=== PATIENT | male | born 1980 | race Caucasian/White ===

== ENCOUNTER → 2023-10-16 | Emergency (ER) | payer OTHER ==
[~2023-10-16] MED LIST: ALBUTEROL 2.5 MG/3 ML NEB SOL ONE; IPRATROPIUM BROM 0.5MG/2.5ML ONE; METHYLPREDNISOLONE 125 MG INJ ONE
--- OUTSIDE RECORDS SUMMARY | 2023-10-16 19:56 | XMS REPORT | Continuity of Care Document ---
Author Name Unknown Address [address] 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 PCP, PATIENT DOES NOT HAVE A Primary Care Physic tomy Unavailable LEYDI BARRERA Attending Clinician Unavailable Leydi Barrera DO Attending Clinician [phone] GELACIO NICOLE Attending Clinician Unavailable GELACIO NICOLE Attending Clinician Unavailable AVELINO ENCINAS Attending Clinician Unavailable Doctor Unassigned, [place] Attending Clinician U MADONNA Lozada Attending Clinician UnavailMadonna Roth DO Attending Clinician [phone] Júnior Crowe MD Attending Clinician [phone] Jossue Banks MD Attending Clinician [phone] Deonte Avalos MD Attending Clinician [phone] LEYDI BARRERA Admitting Clinician Unavailable GELACIO NICOLE Admitting Clinician Unavailable Payers Payer Name Policy Type Policy Number Effective Date Expirati on Date Source [facility] [id number] 2021 00:00:00 Problems Condition Name Condition Details Condition Category Status Onset Date Resolution Date Last Treatment Date Treating Clinician Comments Source Asthma attack Asthma attack Disease Active 08-18 00:00: 00 [facility] Asthma Asthma Disease Active 04-20 00:00: 00 [facility] Asthma exacerbati on Asthma exacerbati on Disease Active 04-19 00:00: 00 [facility] Allergies, Adverse Reactions, Alerts Allergy Name Allergy Type Status Severity Reaction(s) Onset Date Inactive Date Treating Clinician Comments Source NO KNOWN ALLERGIE S Drug Class Active [facility] Social History Social Habit Start Date Stop Date Quantity Comments Source History SDOH Alcohol Frequency [facility] History SDOH Alcohol Std Drinks [facility] History SDOH Alcohol Binge [facility] History of tobacco use Smokes tobacco daily [facility] intake 2023-05-02 00:00:00 2023-05-02 00:00:00 0 /d [facility] History of Social function 2023-05-02 00:00:00 2023-05-02 00:00:00 [facility] Exposure to SARS-CoV-2 (event) 2022-04-06 00:00:00 2022-04-16 14:30:00 Not sure [facility] Tobacco use and exposure 2017-08-18 00:00:00 2017-08-18 00:00:00 Smokeless tobacco non-user [facility] Alcohol Comment 2015-04-19 00:00:00 2015-04-19 00:00:00 social drinker [facility] Sex Assigned At 1980 00:00:00 1980 00:00:00 [facility] Smoking Status Start Date Stop Date Source Smokes tobacco daily 2017-08-18 00:00:00 [facility] Medications Ordered Medication Name Filled Medication Name Start Date Stop Date Current Medication? Ordering Clinician Indication Dosage Frequency Signature (SIG) Comments Components Source methylpredn isolone sod succ (SOLU-MEDRO L) injection 125 mg 05-02 09:30: 00 05-02 08:34 :00 No 125mg 125 mg, Intramuscu lar, ONCE, 1 dose, On Tue05/02/23 at 0430, 2 mL [facility] ipratropium -albuteroL (DUONEB) 0.5 mg-3 mg(2.5 mg base)/3 mL nebulizer solution 3 mL 05-02 08:45: 00 Yes 3mL 3 mL, Inhalation , QID, First dose on Tue05/02/23 at 0345, Until Discontinu ed, Routine [facility] naproxen sodium (ANAPROX DS) 550 mg tablet 05-02 00:00: 00 Yes [id number] 550mg Take 1 tablet by mouth in the morning and 1 tablet in the evening. Take with meals. [facility] methylPREDN ISolone (MEDROL, CHRIST,) 4 mg tablets 05-02 00:00: 00 Yes [id number] Take by mouth SEE-INSTRU CTIONS. follow package directions [facility] methocarbam oL 500 mg tablet 05-02 00:00: 00 05-08 04:59 :00 No [id number] 500mg Take 1 tablet by mouth in the morning and 1 tablet at noon and 1 tablet in the evening. Do all this for 5 days. [facility] acetaminoph en (TYLENOL) tablet 1,000 mg 04-16 21:30: 00 04-16 21:18 :00 No 1000mg 1,000 mg, Oral, ONCE, 1 dose, On Tue04/16/22 at 1630, RIVAS [facility] predniSONE (DELTASONE) tablet 40 mg 04-16 19:45: 00 04-16 19:43 :00 No 40mg 40 mg, Oral, ONCE, 1 dose, On Tue04/16/22 at 1445, RIVAS [facility] albuterol (VENTOLIN) inhaler 4 Puff 04-16 19:35: 00 04-16 19:45 :00 No 4{puff} 4 Puff, Inhalation , ONCE, 1 dose, On Tue04/16/22 at 1445, RIVAS [facility] ibuprofen 600 mg tablet 04-16 00:00: 00 Yes [id number] 600mg Take 1 tablet by mouth every 6 (six) hours as needed for Pain (scale 4-6) for up to 30 doses. [facility] albuterol 2.5 mg /3 mL (0.083 %) nebulizer solution 04-16 00:00: 00 Yes [id number] 2.5mg Inhale 3 mL every 4 (four) hours. May also nebulize one extra every 6 hours. [facility] ibuprofen 600 mg tablet 04-16 00:00: 00 Yes [id number] 600mg Take 1 tablet by mouth every 6 (six) hours as needed for Pain (scale 4-6) for up to 30 doses. [facility] albuterol 2.5 mg /3 mL (0.083 %) nebulizer solution 04-16 00:00: 00 Yes [id number] 2.5mg Inhale 3 mL every 4 (four) hours. May also nebulize one extra every 6 hours. [facility] nirmatrelvi r-ritonavir (PAXLOVID, EUA,) 150-100 mg tablet 04-16 00:00: 00 04-22 04:59 :00 No [id number] 2{tbl} Take 2 tablets by mouth in the morning and 2 tablets in the evening. Do all this for 5 days. [facility] predniSONE 10 mg tablet 09-06 00:00: 00 09-11 05:59 :00 No [id number] 60mg Take 6 tablets by mouth daily for 4 days. [facility] predniSONE (DELTASONE) tablet 60 mg 09-05 22:45: 00 09-05 21:46 :00 No 60mg 60 mg, Oral, ONCE, 1 dose, On 09/05/21 at 1645, RIVAS [facility] ipratropium (ATROVENT) 0.02 % nebulizer solution 0.5 mg 09-05 22:45: 00 09-05 21:56 :00 No .5mg 0.5 mg, Inhalation , ONCE, 1 dose, On 09/05/21 at 1645, RIVAS [facility] albuterol (PROVENTIL) 2.5 mg /3 mL (0.083 %) nebulizer solution 5 mg 09-05 22:45: 00 09-05 21:56 :00 No 5mg 5 mg, Inhalation , ONCE, 1 dose, On 09/05/21 at 1645, RIVAS [facility] albuterol 2.5 mg /3 mL (0.083 %) nebulizer solution 09-05 00:00: 00 Yes [id number] 2.5mg Inhale 3 mL every 4 (four) hours as needed for Wheezing or Shortness of Breath. May also nebulize one extra every 6 hours. [facility] albuterol 2.5 mg /3 mL (0.083 %) nebulizer solution 09-05 00:00: 00 Yes [id number] 2.5mg Inhale 3 mL every 4 (four) hours as needed for Wheezing or Shortness of Breath. May also nebulize one extra every 6 hours. [facility] albuterol 2.5 mg /3 mL (0.083 %) nebulizer solution 09-05 00:00: 00 04-16 00:00 :00 No [id number] 2.5mg Inhale 3 mL every 4 (four) hours as needed for Wheezing or Shortness of Breath. May also nebulize one extra every 6 hours. [facility] ipratropium -albuteroL (DUONEB) 0.5 mg-3 mg(2.5 mg base)/3 mL nebulizer solution 3 mL 2020-08 13:00: 00 Yes 3mL 3 mL, Inhalation , QID, First dose on Marija 05/28/21 at 0800, Until Discontinu ed, Routine [facility] methylpredn isolone sod succ (SOLU-MEDRO L) injection 125 mg 2020-08 13:00: 00 05-28 13:15 :00 No 125mg 125 mg, IV Piggyback, ONCE, 1 dose, On Marija 05/28/21 at 0800, STAT [facility] ipratropium -albuteroL (DUONEB) 0.5 mg-3 mg(2.5 mg base)/3 mL nebulizer solution 6 mL 2020-08 12:45: 00 05-28 11:37 :00 No 6mL 6 mL, Inhalation , ONCE, 1 dose, On Marija 05/28/21 at 0745, Routine [facility] predniSONE 50 mg tablet 2020-08 00:00: 00 Yes [id number] 50mg Take 1 tablet by mouth daily. [facility] albuterol 90 mcg/actuati on inhaler 2020-08 00:00: 00 Yes [id number] 2{puff} Inhale 2 Puffs every 4 (four) hours as needed for Wheezing or Shortness of Breath. [facility] albuterol 2.5 mg /3 mL (0.083 %) nebulizer solution 2020-08 00:00: 00 Yes [id number] 2.5mg Inhale 3 mL every 4 (four) hours. May also nebulize one extra every 6 hours. [facility] benzonatate 200 mg capsule 2020-08 00:00: 00 Yes [id number] 200mg Take 1 capsule by mouth 3 (three) times daily as needed for Cough. [facility] benzonatate 200 mg capsule 2020-08 00:00: 00 Yes [id number] 200mg Take 1 capsule by mouth 3 (three) times daily as needed for Cough. [facility] benzonatate 200 mg capsule 2020-08 00:00: 00 Yes [id number] 200mg Take 1 capsule by mouth 3 (three) times daily as needed for Cough. [facility] benzonatate 200 mg capsule 2020-08 00:00: 00 Yes [id number] 200mg Take 1 capsule by mouth 3 (three) times daily as needed for Cough. [facility] benzonatate 200 mg capsule 2020-08 00:00: 00 Yes [id number] 200mg Take 1 capsule by mouth 3 (three) times daily as needed for Cough. [facility] predniSONE 50 mg tablet 2020-08 00:00: 09-05 00:00 :00 No [id number] 50mg Take 1 tablet by mouth daily. [facility] albuterol 90 mcg/actuati on inhaler 2020-08 00:00: 00 09-05 00:00 :00 No [id number] 2{puff} Inhale 2 Puffs every 4 (four) hours as needed for Wheezing or Shortness of Breath. [facility] albuterol 2.5 mg /3 mL (0.083 %) nebulizer solution 2020-08 00:00: 00 09-05 00:00 :00 No [id number] 2.5mg Inhale 3 mL every 4 (four) hours. May also nebulize one extra every 6 hours. [facility] predniSONE 10 mg tablet 12-29 00:00: 00 Yes [id number] 50mg Take 5 tablets by mouth daily. [facility] predniSONE 10 mg tablet 12-29 00:00: 00 Yes [id number] 50mg Take 5 tablets by mouth daily. [facility] predniSONE 10 mg tablet 12-29 00:00: 00 09-05 00:00 :00 No [id number] 50mg Take 5 tablets by mouth daily. [facility] predniSONE 10 mg tablet 12-29 00:00: 00 12-28 00:00 :00 No [id number] 50mg Take 5 tablets by mouth daily for 4 days. [facility] albuterol (PROVENTIL) 2.5 mg /3 mL (0.083 %) nebulizer solution 5 mg 12-28 13:15: 00 12-28 13:05 :00 No 5mg 5 mg, Inhalation , ONCE, 1 dose, 12/28/20 at 0815, STAT [facility] methylpredn isolone sod succ (SOLU-MEDRO L) injection 125 mg 12-28 13:15: 00 12-28 12:08 :00 No 125mg 125 mg, IV Piggyback, ONCE, 1 dose, 12/28/20 at 0815, STAT [facility] ipratropium (ATROVENT) 0.02 % nebulizer solution 0.5 mg 12-28 12:15: 00 12-28 12:09 :00 No .5mg 0.5 mg, Inhalation , ONCE, 1 dose, Flom 12/28/20 at 0715, RIVAS [facility] albuterol (PROVENTIL) 2.5 mg /3 mL (0.083 %) nebulizer solution 7.5 mg 12-28 12:15: 00 12-28 12:08 :00 No 7.5mg 7.5 mg, Inhalation , ONCE, 1 dose, Flom 12/28/20 at 0715, STAT [facility] albuterol 2.5 mg /3 mL (0.083 %) nebulizer solution 12-28 00:00: 00 Yes [id number] 2.5mg Inhale 3 mL every 4 (four) hours as needed for Wheezing or Shortness of Breath. [facility] albuterol 90 mcg/actuati on inhaler 12-28 00:00: 00 Yes [id number] 2{puff} Inhale 2 Puffs every 4 (four) hours as needed for Wheezing. [facility] ipratropium -albuteroL 0.5 mg-3 mg(2.5 mg base)/3 mL nebulizer solution 12-28 00:00: 00 Yes [id number] 3mL Inhale 3 mL every 4 (four) hours as needed for Wheezing. [facility] albuterol 2.5 mg /3 mL (0.083 %) nebulizer solution 12-28 00:00: 00 Yes [id number] 2.5mg Inhale 3 mL every 4 (four) hours as needed for Wheezing or Shortness of Breath. [facility] albuterol 90 mcg/actuati on inhaler 12-28 00:00: 00 Yes [id number] 2{puff} Inhale 2 Puffs every 4 (four) hours as needed for Wheezing. [facility] ipratropium -albuteroL 0.5 mg-3 mg(2.5 mg base)/3 mL nebulizer solution 12-28 00:00: 00 Yes [id number] 3mL Inhale 3 mL every 4 (four) hours as needed for Wheezing. [facility] ipratropium -albuteroL 0.5 mg-3 mg(2.5 mg base)/3 mL nebulizer solution 12-28 00:00: 00 Yes [id number] 3mL Inhale 3 mL every 4 (four) hours as needed for Wheezing. [facility] ipratropium -albuteroL 0.5 mg-3 mg(2.5 mg base)/3 mL nebulizer solution 12-28 00:00: 00 Yes [id number] 3mL Inhale 3 mL every 4 (four) hours as needed for Wheezing. [facility] ipratropium -albuteroL 0.5 mg-3 mg(2.5 mg base)/3 mL nebulizer solution 12-28 00:00: 00 Yes [id number] 3mL Inhale 3 mL every 4 (four) hours as needed for Wheezing. [facility] ipratropium -albuteroL 0.5 mg-3 mg(2.5 mg base)/3 mL nebulizer solution 12-28 00:00: 00 Yes [id number] 3mL Inhale 3 mL every 4 (four) hours as needed for Wheezing. [facility] albuterol 2.5 mg /3 mL (0.083 %) nebulizer solution 12-28 00:00: 00 09-05 00:00 :00 No [id number] 2.5mg Inhale 3 mL every 4 (four) hours as needed for Wheezing or Shortness of Breath. [facility] albuterol 90 mcg/actuati on inhaler 12-28 00:00: 00 09-05 00:00 :00 No [id number] 2{puff} Inhale 2 Puffs every 4 (four) hours as needed for Wheezing. [facility] albuterol 90 mcg/actuati on inhaler 12-28 00:00: 00 12-28 00:00 :00 No [id number] 2{puff} Inhale 2 Puffs every 4 (four) hours as needed for Wheezing. [facility] albuterol 2.5 mg /3 mL (0.083 %) nebulizer solution 12-28 00:00: 00 12-28 00:00 :00 No [id number] 2.5mg Inhale 3 mL every 4 (four) hours as needed for Wheezing or Shortness of Breath. [facility] ipratropium -albuteroL 0.5 mg-3 mg(2.5 mg base)/3 mL nebulizer solution 12-28 00:00: 00 12-28 00:00 :00 No [id number] 3mL Inhale 3 mL every 4 (four) hours as needed for Wheezing. [facility] HYDROcodone -acetaminop hen (NORCO 5) 5-325 mg tablet 1 tablet 11-09 22:15: 00 11-09 21:19 :00 No 1{tbl} 1 tablet, Oral, ONCE, 1 dose, 11/09/20 at 1715, RIVAS [facility] morpHINE injection 4 mg 11-09 20:15: 00 11-09 19:22 :00 No 4mg 4 mg, Slow IV Push, ONCE, 1 dose, 11/09/20 at 1515, STAT [facility] NaCl 0.9% (NS) bolus infusion 1,000 mL 11-09 19:30: 00 11-09 21:19 :00 No 1000mL at 999 mL/hr, 1,000 mL, IV Infusion, ONCE, 1 dose, 11/09/20 at 1430, RVIAS [facility] ketorolac (TORADOL) injection 30 mg 11-09 19:15: 00 11-09 19:21 :00 No 30mg 30 mg, Slow IV Push, ONCE, 1 dose, 11/09/20 at 1415, RIVAS
Fa culty member approving Restricted medication : MADONNA BROWNE [facility] ondansetron (ZOFRAN (PF)) injection 4 mg 11-09 18:45: 00 11-09 17:44 :00 No 4mg 4 mg, Slow IV Push, ONCE, 1 dose, 11/09/20 at 1345, RIVAS [facility] morpHINE injection 4 mg 11-09 18:45: 00 11-09 17:47 :00 No 4mg 4 mg, Slow IV Push, ONCE, 1 dose, 11/09/20 at 1345, STAT [facility] ketorolac (TORADOL) injection 30 mg 11-09 17:45: 00 11-09 17:45 :00 No 30mg 30 mg, Slow IV Push, ONCE, 1 dose, 11/09/20 at 1245, RIVAS
Fa culty member approving Restricted medication : MADONNA BROWNE [facility] NaCl 0.9% (NS) bolus infusion 1,000 mL 11-09 17:45: 00 11-09 19:21 :00 No 1000mL at 999 mL/hr, 1,000 mL, IV Infusion, ONCE, 1 dose, 11/09/20 at 1245, RIVAS [facility] naproxen 500 mg tablet 11-09 00:00: 00 Yes [id number] 500mg Take 1 tablet by mouth 2 (two) times daily with meals. [facility] naproxen 500 mg tablet 11-09 00:00: 00 12-28 00:00 :00 No [id number] 500mg Take 1 tablet by mouth 2 (two) times daily with meals. [facility] methylpredn isolone sod succ (SOLU-MEDRO L) injection 125 mg 10-03 19:45: 00 10-03 18:44 :00 No 125mg 125 mg, IV Piggyback, ONCE, 1 dose, 10/03/19 at 1345, STAT [facility] ipratropium -albuterol (DUONEB) 0.5 mg-3 mg(2.5 mg base)/3 mL nebulizer solution 6 mL 10-03 19:45: 00 10-03 18:33 :00 No 6mL 6 mL, Inhalation , ONCE, 1 dose, 10/03/19 at 1345, Routine [facility] albuterol 2.5 mg /3 mL (0.083 %) nebulizer solution 10-03 00:00: 00 Yes [id number] 2.5mg Inhale 3 mL every 4 (four) hours as needed for Wheezing or Shortness of Breath. [facility] albuterol 2.5 mg /3 mL (0.083 %) nebulizer solution 10-03 00:00: 00 Yes [id number] 2.5mg Inhale 3 mL every 4 (four) hours as needed for Wheezing or Shortness of Breath. [facility] albuterol 2.5 mg /3 mL (0.083 %) nebulizer solution 10-03 00:00: 00 12-28 00:00 :00 No [id number] 2.5mg Inhale 3 mL every 4 (four) hours as needed for Wheezing or Shortness of Breath. [facility] predniSONE 20 mg tablet 10-03 00:00: 00 10-08 05:59 :00 No [id number] 60mg Take 3 tablets by mouth every morning for 5 days. [facility] ipratropium -albuterol (DUONEB) 0.5 mg-3 mg(2.5 mg base)/3 mL nebulizer solution 9 mL 09-15 20:45: 00 09-15 19:39 :00 No 9mL 9 mL, Inhalation , ONCE, 1 dose, 09/15/19 at 1445, Routine [facility] methylpredn isolone sod succ (SOLU-MEDRO L) injection 125 mg 09-15 20:45: 00 09-15 19:41 :00 No 125mg 125 mg, IV Piggyback, ONCE, 1 dose, 09/15/19 at 1445, STAT [facility] albuterol 90 mcg/actuati on inhaler 09-15 00:00: 00 Yes [id number] 2{puff} Inhale 2 Puffs every 4 (four) hours as needed for Wheezing. [facility] ipratropium -albuterol 0.5 mg-3 mg(2.5 mg base)/3 mL nebulizer solution 09-15 00:00: 00 Yes [id number] 3mL Inhale 3 mL every 4 (four) hours as needed for Wheezing. [facility] albuterol 90 mcg/actuati on inhaler 09-15 00:00: 00 Yes [id number] 2{puff} Inhale 2 Puffs every 4 (four) hours as needed for Wheezing. [facility] ipratropium -albuterol 0.5 mg-3 mg(2.5 mg base)/3 mL nebulizer solution 09-15 00:00: 00 Yes [id number] 3mL Inhale 3 mL every 4 (four) hours as needed for Wheezing. [facility] albuterol 90 mcg/actuati on inhaler 09-15 00:00: 00 Yes [id number] 2{puff} Inhale 2 Puffs every 4 (four) hours as needed for Wheezing. [facility] ipratropium -albuterol 0.5 mg-3 mg(2.5 mg base)/3 mL nebulizer solution 09-15 00:00: 00 Yes [id number] 3mL Inhale 3 mL every 4 (four) hours as needed for Wheezing. [facility] albuterol 90 mcg/actuati on inhaler 09-15 00:00: 00 Yes [id number] 2{puff} Inhale 2 Puffs every 4 (four) hours as needed for Wheezing. [facility] ipratropium -albuterol 0.5 mg-3 mg(2.5 mg base)/3 mL nebulizer solution 09-15 00:00: 00 Yes [id number] 3mL Inhale 3 mL every 4 (four) hours as needed for Wheezing. [facility] albuterol 90 mcg/actuati on inhaler 09-15 00:00: 12-28 00:00 :00 No [id number] 2{puff} Inhale 2 Puffs every 4 (four) hours as needed for Wheezing. [facility] ipratropium -albuterol 0.5 mg-3 mg(2.5 mg base)/3 mL nebulizer solution 08 00:00: 12-28 00:00 :00 No [id number] 3mL Inhale 3 mL every 4 (four) hours as needed for Wheezing. [facility] predniSONE 20 mg tablet 2018-08 00:00: 00 Yes [id number] 60mg Take 3 tablets by mouth every morning. [facility] ipratropium -albuterol 0.5 mg-3 mg(2.5 mg base)/3 mL nebulizer solution 2018-08 00:00: 00 Yes [id number] 3mL Inhale 3 mL every 4 (four) hours as needed for Wheezing. [facility] predniSONE 20 mg tablet 2018-08 00:00: 00 Yes [id number] 60mg Take 3 tablets by mouth every morning. [facility] predniSONE 20 mg tablet 2018-08 00:00: 00 Yes [id number] 60mg Take 3 tablets by mouth every morning. [facility] predniSONE 20 mg tablet 2018-08 00:00: 00 Yes [id number] 60mg Take 3 tablets by mouth every morning. [facility] predniSONE 20 mg tablet 2018-08 00:00: 00 Yes [id number] 60mg Take 3 tablets by mouth every morning. [facility] predniSONE 20 mg tablet 2018-08 00:00: 00 12-28 00:00 :00 No [id number] 60mg Take 3 tablets by mouth every morning. [facility] ipratropium -albuterol 0.5 mg-3 mg(2.5 mg base)/3 mL nebulizer solution 2018-08 00:00: 00 09-15 00:00 :00 No [id number] 3mL Inhale 3 mL every 4 (four) hours as needed for Wheezing. [facility] ipratropium -albuterol (DUONEB) 0.5 mg-3 mg(2.5 mg base)/3 mL nebulizer solution 3 mL 04-15 06:30: 00 04-15 05:32 :00 No 3mL 3 mL, Inhalation , ONCE, 1 dose, 04/15/19 at 0130, Routine [facility] methylpredn isolone sod succ (SOLU-MEDRO L) injection 125 mg 04-15 06:30: 00 04-15 05:19 :00 No 125mg 125 mg, Intramuscu lar, ONCE, 1 dose, 04/15/19 at 0130, STAT [facility] ipratropium -albuterol (DUONEB) 0.5 mg-3 mg(2.5 mg base)/3 mL nebulizer solution 3 mL 04-15 06:00: 00 04-15 05:00 :00 No 3mL 3 mL, Inhalation , ONCE, 1 dose, 04/15/19 at 0100, Routine [facility] albuterol 2.5 mg /3 mL (0.083 %) nebulizer solution 04-15 00:00: 00 Yes [id number] 2.5mg Inhale 3 mL every 4 (four) hours. May also nebulize one extra every 6 hours. [facility] albuterol 90 mcg/actuati on inhaler 04-15 00:00: 00 Yes [id number] 2{puff} Inhale 2 Puffs every 4 (four) hours as needed for Wheezing or Shortness of Breath. [facility] albuterol 2.5 mg /3 mL (0.083 %) nebulizer solution 04-15 00:00: 00 Yes [id number] 2.5mg Inhale 3 mL every 4 (four) hours. May also nebulize one extra every 6 hours. [facility] albuterol 90 mcg/actuati on inhaler 04-15 00:00: 00 Yes [id number] 2{puff} Inhale 2 Puffs every 4 (four) hours as needed for Wheezing or Shortness of Breath. [facility] predniSONE 50 mg tablet 04-15 00:00: 00 Yes [id number] 50mg Take 1 tablet by mouth daily. [facility] albuterol 2.5 mg /3 mL (0.083 %) nebulizer solution 04-15 00:00: 09-15 00:00 :00 No [id number] 2.5mg Inhale 3 mL every 4 (four) hours. May also nebulize one extra every 6 hours. [facility] albuterol 90 mcg/actuati on inhaler 04-15 00:00: 00 09-15 00:00 :00 No [id number] 2{puff} Inhale 2 Puffs every 4 (four) hours as needed for Wheezing or Shortness of Breath. [facility] albuterol 2.5 mg /3 mL (0.083 %) nebulizer solution 09-04 00:00: 00 Yes [id number] 2.5mg Inhale 3 mL every 4 (four) hours. May also nebulize one extra every 6 hours. [facility] benzonatate 200 mg capsule 09-04 00:00: 00 Yes [id number] 200mg Take 1 capsule by mouth 3 (three) times daily as needed for Cough. [facility] benzonatate 200 mg capsule 09-04 00:00: 00 Yes [id number] 200mg Take 1 capsule by mouth 3 (three) times daily as needed for Cough. [facility] benzonatate 200 mg capsule 09-04 00:00: 00 Yes [id number] 200mg Take 1 capsule by mouth 3 (three) times daily as needed for Cough. [facility] benzonatate 200 mg capsule 09-04 00:00: 00 Yes [id number] 200mg Take 1 capsule by mouth 3 (three) times daily as needed for Cough. [facility] benzonatate 200 mg capsule 09-04 00:00: 00 Yes [id number] 200mg Take 1 capsule by mouth 3 (three) times daily as needed for Cough. [facility] albuterol 2.5 mg /3 mL (0.083 %) nebulizer solution 09-04 00:00: 00 Yes [id number] 2.5mg Inhale 3 mL every 4 (four) hours. May also nebulize one extra every 6 hours. [facility] predniSONE 50 mg tablet 09-04 00:00: 00 Yes [id number] 50mg Take 1 tablet by mouth daily. [facility] benzonatate 200 mg capsule 09-04 00:00: 00 Yes [id number] 200mg Take 1 capsule by mouth 3 (three) times daily as needed for Cough. [facility] albuterol 2.5 mg /3 mL (0.083 %) nebulizer solution 09-04 00:00: 00 Yes [id number] 2.5mg Inhale 3 mL every 4 (four) hours. May also nebulize one extra every 6 hours. [facility] predniSONE 50 mg tablet 09-04 00:00: 00 Yes [id number] 50mg Take 1 tablet by mouth daily. [facility] benzonatate 200 mg capsule 09-04 00:00: 00 Yes [id number] 200mg Take 1 capsule by mouth 3 (three) times daily as needed for Cough. [facility] benzonatate 200 mg capsule 09-04 00:00: 00 12-28 00:00 :00 No [id number] 200mg Take 1 capsule by mouth 3 (three) times daily as needed for Cough. [facility] albuterol 2.5 mg /3 mL (0.083 %) nebulizer solution 09-04 00:00: 00 09-15 00:00 :00 No [id number] 2.5mg Inhale 3 mL every 4 (four) hours. May also nebulize one extra every 6 hours. [facility] albuterol 90 mcg/actuati on inhaler 2017-08 00:00: 00 Yes 2{puff} Inhale 2 Puffs every 4 (four) hours as needed for Wheezing or Shortness of Breath. [facility] albuterol 90 mcg/actuati on inhaler 2017-08 00:00: 00 Yes 2{puff} Inhale 2 Puffs every 4 (four) hours as needed for Wheezing or Shortness of Breath. [facility] predniSONE 50 mg tablet 2017-08 00:00: 00 Yes 50mg Take 1 tablet by mouth daily. [facility] albuterol-i pratropium 20-100 mcg/actuati on inhaler 2017-08 00:00: 00 Yes 1{puff} Inhale 1 Puff 4 (four) times daily. [facility] albuterol 90 mcg/actuati on inhaler 2017-08 00:00: 00 Yes 2{puff} Inhale 2 Puffs every 4 (four) hours as needed for Wheezing or Shortness of Breath. [facility] albuterol 90 mcg/actuati on inhaler 2017-08 00:00: 00 Yes 2{puff} Inhale 2 Puffs every 4 (four) hours as needed for Wheezing or Shortness of Breath. [facility] predniSONE 50 mg tablet 2017-08 00:00: 00 Yes 50mg Take 1 tablet by mouth daily. [facility] albuterol-i pratropium 20-100 mcg/actuati on inhaler 2017-08 00:00: 00 Yes 1{puff} Inhale 1 Puff 4 (four) times daily. [facility] albuterol 90 mcg/actuati on inhaler 2017-08 00:00: 00 Yes 2{puff} Inhale 2 Puffs every 4 (four) hours as needed for Wheezing or Shortness of Breath. [facility] albuterol 90 mcg/actuati on inhaler 2017-08 00:00: 00 Yes 2{puff} Inhale 2 Puffs every 4 (four) hours as needed for Wheezing or Shortness of Breath. [facility] albuterol 90 mcg/actuati on inhaler 2017-08 00:00: 00 09-15 00:00 :00 No 2{puff} Inhale 2 Puffs every 4 (four) hours as needed for Wheezing or Shortness of Breath. [facility] albuterol 90 mcg/actuati on inhaler 2017-08 00:00: 00 09-15 00:00 :00 No 2{puff} Inhale 2 Puffs every 4 (four) hours as needed for Wheezing or Shortness of Breath. [facility] montelukast 10 mg tablet 08-23 00:00: 00 Yes 10mg Take 1 tablet by mouth daily. [facility] montelukast 10 mg tablet 08-23 00:00: 00 Yes 10mg Take 1 tablet by mouth daily. [facility] montelukast 10 mg tablet 08-23 00:00: 00 Yes 10mg Take 1 tablet by mouth daily. [facility] montelukast 10 mg tablet 08-23 00:00: 00 Yes 10mg Take 1 tablet by mouth daily. [facility] montelukast 10 mg tablet 08-23 00:00: 00 Yes 10mg Take 1 tablet by mouth daily. [facility] montelukast 10 mg tablet 08-23 00:00: 00 Yes 10mg Take 1 tablet by mouth daily. [facility] montelukast 10 mg tablet 08-23 00:00: 00 Yes 10mg Take 1 tablet by mouth daily. [facility] montelukast 10 mg tablet 08-23 00:00: 00 Yes 10mg Take 1 tablet by mouth daily. [facility] predniSONE 20 mg tablet 08-23 00:00: 00 Yes 60mg Take 3 tablets by mouth daily. [facility] montelukast 10 mg tablet 08-23 00:00: 00 Yes 10mg Take 1 tablet by mouth daily. [facility] montelukast 10 mg tablet 16 00:00: 00 Yes 10mg Take 1 tablet by mouth daily. [facility] montelukast 10 mg tablet 08-23 00:00: 00 Yes 10mg Take 1 tablet by mouth daily. [facility] montelukast 10 mg tablet 08-23 00:00: 00 Yes 10mg Take 1 tablet by mouth daily. [facility] predniSONE 20 mg tablet 08-23 00:00: 00 Yes 60mg Take 3 tablets by mouth daily. [facility] montelukast 10 mg tablet 08-23 00:00: 00 Yes 10mg Take 1 tablet by mouth daily. [facility] albuterol 2.5 mg /3 mL (0.083 %) nebulizer solution 08-22 00:00: 00 Yes 2.5mg Inhale 3 mL every 4 (four) hours as needed for Shortness of Breath or Wheezing. [facility] albuterol 90 mcg/actuati on inhaler 08-22 00:00: 00 Yes 2{puff} Inhale 2 Puffs every 6 (six) hours as needed for Wheezing or Shortness of Breath. [facility] albuterol 2.5 mg /3 mL (0.083 %) nebulizer solution 08-22 00:00: 00 Yes 2.5mg Inhale 3 mL every 4 (four) hours as needed for Shortness of Breath or Wheezing. [facility] albuterol 90 mcg/actuati on inhaler 08-22 00:00: 00 Yes 2{puff} Inhale 2 Puffs every 6 (six) hours as needed for Wheezing or Shortness of Breath. [facility] albuterol 2.5 mg /3 mL (0.083 %) nebulizer solution 08-22 00:00: 00 Yes 2.5mg Inhale 3 mL every 4 (four) hours as needed for Shortness of Breath or Wheezing. [facility] albuterol 90 mcg/actuati on inhaler 08-22 00:00: 00 Yes 2{puff} Inhale 2 Puffs every 6 (six) hours as needed for Wheezing or Shortness of Breath. [facility] albuterol 2.5 mg /3 mL (0.083 %) nebulizer solution 08-22 00:00: 00 09-15 00:00 :00 No 2.5mg Inhale 3 mL every 4 (four) hours as needed for Shortness of Breath or Wheezing. [facility] albuterol 90 mcg/actuati on inhaler 08-22 00:00: 00 09-15 00:00 :00 No 2{puff} Inhale 2 Puffs every 6 (six) hours as needed for Wheezing or Shortness of Breath. [facility] albuterol 90 mcg/actuati on inhaler 2016-08 00:00: 00 Yes 2{puff} Inhale 2 Puffs every 4 (four) hours as needed for Wheezing or Shortness of Breath. [facility] albuterol 2.5 mg /3 mL (0.083 %) nebulizer solution 2016-08 00:00: 00 Yes 2.5mg Inhale 3 mL every 4 (four) hours. May also nebulize one extra every 6 hours. [facility] predniSONE 50 mg tablet 2016-08 00:00: 00 Yes 50mg Take 1 tablet by mouth daily. [facility] albuterol 90 mcg/actuati on inhaler 2016-08 00:00: 00 Yes 2{puff} Inhale 2 Puffs every 4 (four) hours as needed for Wheezing or Shortness of Breath. [facility] albuterol 2.5 mg /3 mL (0.083 %) nebulizer solution 2016-08 00:00: 00 Yes 2.5mg Inhale 3 mL every 4 (four) hours. May also nebulize one extra every 6 hours. [facility] predniSONE 50 mg tablet 2016-08 00:00: 00 Yes 50mg Take 1 tablet by mouth daily. [facility] albuterol 90 mcg/actuati on inhaler 2016-08 00:00: 00 Yes 2{puff} Inhale 2 Puffs every 4 (four) hours as needed for Wheezing or Shortness of Breath. [facility] albuterol 2.5 mg /3 mL (0.083 %) nebulizer solution 2016-08 00:00: 00 Yes 2.5mg Inhale 3 mL every 4 (four) hours. May also nebulize one extra every 6 hours. [facility] albuterol 90 mcg/actuati on inhaler 2016-08 00:00: 00 09-15 00:00 :00 No 2{puff} Inhale 2 Puffs every 4 (four) hours as needed for Wheezing or Shortness of Breath. [facility] albuterol 2.5 mg /3 mL (0.083 %) nebulizer solution 2016-08 00:00: 00 09-15 00:00 :00 No 2.5mg Inhale 3 mL every 4 (four) hours. May also nebulize one extra every 6 hours. [facility] methylPREDN ISolone (MEDROL, CHRIST,) 4 mg tablets 2016-08 00:00: 00 Yes Take by mouth SEE-INSTRU CTIONS. follow package directions [facility] methylPREDN ISolone (MEDROL, CHRIST,) 4 mg tablets 2016-08 00:00: 00 Yes Take by mouth SEE-INSTRU CTIONS. follow package directions [facility] methylPREDN ISolone (MEDROL, CHRIST,) 4 mg tablets 2016-08 00:00: 00 Yes Take by mouth SEE-INSTRU CTIONS. follow package directions [facility] methylPREDN ISolone (MEDROL, CHRIST,) 4 mg tablets 2016-08 00:00: 00 Yes Take by mouth SEE-INSTRU CTIONS. follow package directions [facility] methylPREDN ISolone (MEDROL, CHRIST,) 4 mg tablets 2016-08 00:00: 00 Yes Take by mouth SEE-INSTRU CTIONS. follow package directions [facility] methylPREDN ISolone (MEDROL, CHRIST,) 4 mg tablets 2016-08 00:00: 00 Yes Take by mouth SEE-INSTRU CTIONS. follow package directions [facility] methylPREDN ISolone (MEDROL, CHRIST,) 4 mg tablets 2016-08 00:00: 00 Yes Take by mouth SEE-INSTRU CTIONS. follow package directions [facility] methylPREDN ISolone (MEDROL, CHRITS,) 4 mg tablets 2016-08 00:00: 00 12-28 00:00 :00 No Take by mouth SEE-INSTRU CTIONS. follow package directions [facility] ZITHROMAX Z-CHRIST 250 mg dose pack 02-08 00:00: 00 Yes 250mg Take 1 tablet by mouth SEE-INSTRU CTIONS. Take 500 mg day 1, then 250 mg days 2 to 5. [facility] ALBUTEROL 90 mcg/actuati on inhaler 02-08 00:00: 00 Yes 2{puff} Inhale 2 Puffs every 4 (four) hours as needed for Wheezing or Shortness of Breath. [facility] ALBUTEROL 2.5 mg /3 mL (0.083 %) nebulizer solution 02-08 00:00: 00 Yes 2.5mg Inhale 3 mL every 4 (four) hours. May also nebulize one extra every 6 hours. [facility] ZITHROMAX Z-CHRIST 250 mg dose pack 02-08 00:00: 00 Yes 250mg Take 1 tablet by mouth SEE-INSTRU CTIONS. Take 500 mg day 1, then 250 mg days 2 to 5. [facility] ZITHROMAX Z-CHRIST 250 mg dose pack 02-08 00:00: 00 Yes 250mg Take 1 tablet by mouth SEE-INSTRU CTIONS. Take 500 mg day 1, then 250 mg days 2 to 5. [facility] ZITHROMAX Z-CHRIST 250 mg dose pack 02-08 00:00: 00 Yes 250mg Take 1 tablet by mouth SEE-INSTRU CTIONS. Take 500 mg day 1, then 250 mg days 2 to 5. [facility] ZITHROMAX Z-CHRIST 250 mg dose pack 02-08 00:00: 00 Yes 250mg Take 1 tablet by mouth SEE-INSTRU CTIONS. Take 500 mg day 1, then 250 mg days 2 to 5. [facility] ZITHROMAX Z-CHRIST 250 mg dose pack 02-08 00:00: 00 Yes 250mg Take 1 tablet by mouth SEE-INSTRU CTIONS. Take 500 mg day 1, then 250 mg days 2 to 5. [facility] PREDNISONE 20 mg tablet 02-08 00:00: 00 Yes 40mg Take 2 tablets by mouth daily. [facility] ALBUTEROL 90 mcg/actuati on inhaler 02-08 00:00: 00 Yes 2{puff} Inhale 2 Puffs every 4 (four) hours as needed for Wheezing or Shortness of Breath. [facility] ALBUTEROL 2.5 mg /3 mL (0.083 %) nebulizer solution 02-08 00:00: 00 Yes 2.5mg Inhale 3 mL every 4 (four) hours. May also nebulize one extra every 6 hours. [facility] ZITHROMAX Z-CHRIST 250 mg dose pack 02-08 00:00: 00 Yes 250mg Take 1 tablet by mouth SEE-INSTRU CTIONS. Take 500 mg day 1, then 250 mg days 2 to 5. [facility] PREDNISONE 20 mg tablet 02-08 00:00: 00 Yes 40mg Take 2 tablets by mouth daily. [facility] ALBUTEROL 90 mcg/actuati on inhaler 02-08 00:00: 00 Yes 2{puff} Inhale 2 Puffs every 4 (four) hours as needed for Wheezing or Shortness of Breath. [facility] ALBUTEROL 2.5 mg /3 mL (0.083 %) nebulizer solution 02-08 00:00: 00 Yes 2.5mg Inhale 3 mL every 4 (four) hours. May also nebulize one extra every 6 hours. [facility] ZITHROMAX Z-CHRIST 250 mg dose pack 02-08 00:00: 00 12-28 00:00 :00 No 250mg Take 1 tablet by mouth SEE-INSTRU CTIONS. Take 500 mg day 1, then 250 mg days 2 to 5. [facility] ALBUTEROL 90 mcg/actuati on inhaler 02-08 00:00: 00 09-15 00:00 :00 No 2{puff} Inhale 2 Puffs every 4 (four) hours as needed for Wheezing or Shortness of Breath. [facility] ALBUTEROL 2.5 mg /3 mL (0.083 %) nebulizer solution 7-04 00:00: 00 09-15 00:00 :00 No 2.5mg Inhale 3 mL every 4 (four) hours. May also nebulize one extra every 6 hours. [facility] albuterol 90 mcg/actuati on inhaler 01-24 00:00: 00 Yes 2{puff} Inhale 2 Puffs every 4 (four) hours as needed for Wheezing or Shortness of Breath. [facility] al[facility] mcg/actuati on inhaler 01-24 00:00: 00 Yes 2{puff} Inhale 2 Puffs every 4 (four) hours as needed for Wheezing or Shortness of Breath. [facility] albuterol 90 mcg/actuati on inhaler 01-24 00:00: 00 Yes 2{puff} Inhale 2 Puffs every 4 (four) hours as needed for Wheezing or Shortness of Breath. [facility] albuterol 90 mcg/actuati on inhaler 01-24 00:00: 00 09-15 00:00 :00 No 2{puff} Inhale 2 Puffs every 4 (four) hours as needed for Wheezing or Shortness of Breath. [facility] albuterol 90 mcg/actuati on inhaler 09-16 00:00: 00 Yes 2{puff} Inhale 2 Puffs every 4 (four) hours as needed for Wheezing or Shortness of Breath. [facility] albuterol 2.5 mg /3 mL (0.083 %) nebulizer solution 09-16 00:00: 00 Yes 2.5mg Inhale 3 mL every 4 (four) hours. May also nebulize one extra every 6 hours. [facility] albuterol 90 mcg/actuati on inhaler 09-16 00:00: 00 Yes 2{puff} Inhale 2 Puffs every 4 (four) hours as needed for Wheezing or Shortness of Breath. [facility] albuterol 2.5 mg /3 mL (0.083 %) nebulizer solution 09-16 00:00: 00 Yes 2.5mg Inhale 3 mL every 4 (four) hours. May also nebulize one extra every 6 hours. [facility] albuterol 90 mcg/actuati on inhaler 09-16 00:00: 00 Yes 2{puff} Inhale 2 Puffs every 4 (four) hours as needed for Wheezing or Shortness of Breath. [facility] albuterol 2.5 mg /3 mL (0.083 %) nebulizer solution 09-16 00:00: 00 Yes 2.5mg Inhale 3 mL every 4 (four) hours. May also nebulize one extra every 6 hours. [facility] albuterol 90 mcg/actuati on inhaler 09-16 00:00: 00 09-15 00:00 :00 No 2{puff} Inhale 2 Puffs every 4 (four) hours as needed for Wheezing or Shortness of Breath. [facility] albuterol 2.5 mg /3 mL (0.083 %) nebulizer solution 09-16 00:00: 00 09-15 00:00 :00 No 2.5mg Inhale 3 mL every 4 (four) hours. May also nebulize one extra every 6 hours. [facility] albuterol (PROVENTIL) 2.5 mg /3 mL (0.083 %) nebulizer solution 2015-08 00:00: 00 Yes 2.5mg Inhale 3 mL every 4 (four) hours as needed for Wheezing or Shortness of Breath. [facility] albuterol 90 mcg/actuati on inhaler 2015-08 00:00: 00 Yes 2{puff} Inhale 2 Puffs every 4 (four) hours as needed for Wheezing, Shortness of Breath or Bronchospa sm. [facility] erythromyci n base (E-MYCIN) 500 mg tablet 2015-08 00:00: 00 Yes 500mg Take 1 tablet by mouth 4 (four) times daily. [facility] benzonatate (TESSALON) 200 mg capsule 2015-08 00:00: 00 Yes 200mg Take 1 capsule by mouth 3 (three) times daily as needed for Cough. [facility] albuterol (PROVENTIL) 2.5 mg /3 mL (0.083 %) nebulizer solution 2015-08 00:00: 00 Yes 2.5mg Inhale 3 mL every 4 (four) hours as needed for Wheezing or Shortness of Breath. [facility] erythromyci n base (E-MYCIN) 500 mg tablet 2015-08 00:00: 00 Yes 500mg Take 1 tablet by mouth 4 (four) times daily. [facility] benzonatate (TESSALON) 200 mg capsule 2015-08 00:00: 00 Yes 200mg Take 1 capsule by mouth 3 (three) times daily as needed for Cough. [facility] albuterol (PROVENTIL) 2.5 mg /3 mL (0.083 %) nebulizer solution 2015-08 00:00: 00 Yes 2.5mg Inhale 3 mL every 4 (four) hours as needed for Wheezing or Shortness of Breath. [facility] erythromyci n base (E-MYCIN) 500 mg tablet 2015-08 00:00: 00 Yes 500mg Take 1 tablet by mouth 4 (four) times daily. [facility] benzonatate (TESSALON) 200 mg capsule 2015-08 00:00: 00 Yes 200mg Take 1 capsule by mouth 3 (three) times daily as needed for Cough. [facility] albuterol (PROVENTIL) 2.5 mg /3 mL (0.083 %) nebulizer solution 2015-08 00:00: 00 Yes 2.5mg Inhale 3 mL every 4 (four) hours as needed for Wheezing or Shortness of Breath. [facility] erythromyci n base (E-MYCIN) 500 mg tablet 2015-08 00:00: 00 Yes 500mg Take 1 tablet by mouth 4 (four) times daily. [facility] benzonatate (TESSALON) 200 mg capsule 2015-08 00:00: 00 Yes 200mg Take 1 capsule by mouth 3 (three) times daily as needed for Cough. [facility] albuterol (PROVENTIL) 2.5 mg /3 mL (0.083 %) nebulizer solution 2015-08 00:00: 00 Yes 2.5mg Inhale 3 mL every 4 (four) hours as needed for Wheezing or Shortness of Breath. [facility] albuterol (PROVENTIL) 2.5 mg /3 mL (0.083 %) nebulizer solution 2015-08 00:00: 00 Yes 2.5mg Inhale 3 mL every 4 (four) hours as needed for Wheezing or Shortness of Breath. [facility] erythromyci n base (E-MYCIN) 500 mg tablet 2015-08 00:00: 00 Yes 500mg Take 1 tablet by mouth 4 (four) times daily. [facility] benzonatate (TESSALON) 200 mg capsule 2015-08 00:00: 00 Yes 200mg Take 1 capsule by mouth 3 (three) times daily as needed for Cough. [facility] albuterol 90 mcg/actuati on inhaler 2015-08 00:00: 00 Yes 2{puff} Inhale 2 Puffs every 4 (four) hours as needed for Wheezing, Shortness of Breath or Bronchospa sm. [facility] erythromyci n base (E-MYCIN) 500 mg tablet 2015-08 00:00: 00 Yes 500mg Take 1 tablet by mouth 4 (four) times daily. [facility] benzonatate (TESSALON) 200 mg capsule 2015-08 00:00: 00 Yes 200mg Take 1 capsule by mouth 3 (three) times daily as needed for Cough. [facility] predniSONE (DELTASONE) 20 mg tablet 2015-08 00:00: 00 Yes Take 2 pills (40mg) by mouth daily for 5 days [facility] albuterol (PROVENTIL) 2.5 mg /3 mL (0.083 %) nebulizer solution 2015-08 00:00: 00 Yes 2.5mg Inhale 3 mL every 4 (four) hours as needed for Wheezing or Shortness of Breath. [facility] albuterol 90 mcg/actuati on inhaler 2015-08 00:00: 00 Yes 2{puff} Inhale 2 Puffs every 4 (four) hours as needed for Wheezing, Shortness of Breath or Bronchospa sm. [facility] erythromyci n base (E-MYCIN) 500 mg tablet 2015-08 00:00: 00 Yes 500mg Take 1 tablet by mouth 4 (four) times daily. [facility] benzonatate (TESSALON) 200 mg capsule 2015-08 00:00: 00 Yes 200mg Take 1 capsule by mouth 3 (three) times daily as needed for Cough. [facility] predniSONE (DELTASONE) 20 mg tablet 2015-08 00:00: 00 Yes Take 2 pills (40mg) by mouth daily for 5 days [facility] albuterol (PROVENTIL) 2.5 mg /3 mL (0.083 %) nebulizer solution 2015-08 00:00: 00 12-28 00:00 :00 No 2.5mg Inhale 3 mL every 4 (four) hours as needed for Wheezing or Shortness of Breath. [facility] erythromyci n base (E-MYCIN) 500 mg tablet 2015-08 00:00: 00 12-28 00:00 :00 No 500mg Take 1 tablet by mouth 4 (four) times daily. [facility] benzonatate (TESSALON) 200 mg capsule 2015-08 00:00: 00 12-28 00:00 :00 No 200mg Take 1 capsule by mouth 3 (three) times daily as needed for Cough. [facility] albuterol 90 mcg/actuati on inhaler 2015-08 00:00: 00 09-15 00:00 :00 No 2{puff} Inhale 2 Puffs every 4 (four) hours as needed for Wheezing, Shortness of Breath or Bronchospa sm. [facility] albuterol (ACCUNEB) 0.63 mg/3 mL nebulizer solution 2014-08 00:00: 00 Yes .63mg Use 3 mL as directed every 6 (six) hours as needed for Wheezing. [facility] ciprofloxac in HCl (CIPRO) 500 mg tablet 2014-08 00:00: 00 Yes 500mg Take 1 Tab by mouth every 12 (twelve) hours. [facility] ipratropium (ATROVENT) 0.02 % nebulizer solution 2014-08 00:00: 00 Yes .5mg Inhale 2.5 mL every 6 (six) hours as needed for Wheezing or Shortness of Breath. [facility] budesonide- formoterol (SYMBICORT) 160-4.5 mcg/actuati on inhaler 2014-08 00:00: 00 Yes 2{puff} Inhale 2 Puffs 2 (two) times daily. [facility] ciprofloxac in HCl (CIPRO) 500 mg tablet 2014-08 00:00: 00 Yes 500mg Take 1 Tab by mouth every 12 (twelve) hours. [facility] ipratropium (ATROVENT) 0.02 % nebulizer solution 2014-08 00:00: 00 Yes .5mg Inhale 2.5 mL every 6 (six) hours as needed for Wheezing or Shortness of Breath. [facility] budesonide- formoterol (SYMBICORT) 160-4.5 mcg/actuati on inhaler 2014-08 00:00: 00 Yes 2{puff} Inhale 2 Puffs 2 (two) times daily. [facility] albuterol (ACCUNEB) 0.63 mg/3 mL nebulizer solution 2014-08 00:00: 00 Yes .63mg Use 3 mL as directed every 6 (six) hours as needed for Wheezing. [facility] ciprofloxac in HCl (CIPRO) 500 mg tablet 2014-08 00:00: 00 Yes 500mg Take 1 Tab by mouth every 12 (twelve) hours. [facility] ipratropium (ATROVENT) 0.02 % nebulizer solution 2014-08 00:00: 00 Yes .5mg Inhale 2.5 mL every 6 (six) hours as needed for Wheezing or Shortness of Breath. [facility] budesonide- formoterol (SYMBICORT) 160-4.5 mcg/actuati on inhaler 2014-08 00:00: 00 Yes 2{puff} Inhale 2 Puffs 2 (two) times daily. [facility] ciprofloxac in HCl (CIPRO) 500 mg tablet 2014-08 00:00: 00 Yes 500mg Take 1 Tab by mouth every 12 (twelve) hours. [facility] predniSONE (DELTASONE) 10 mg tablet 2014-08 00:00: 00 Yes 10mg Take 1 Tab by mouth daily. [facility] ciprofloxac in HCl (CIPRO) 500 mg tablet 2014-08 00:00: 00 Yes 500mg Take 1 Tab by mouth every 12 (twelve) hours. [facility] ipratropium (ATROVENT) 0.02 % nebulizer solution 2014-08 00:00: 00 Yes .5mg Inhale 2.5 mL every 6 (six) hours as needed for Wheezing or Shortness of Breath. [facility] budesonide- formoterol (SYMBICORT) 160-4.5 mcg/actuati on inhaler 2014-08 00:00: 00 Yes 2{puff} Inhale 2 Puffs 2 (two) times daily. [facility] ipratropium (ATROVENT) 0.02 % nebulizer solution 2014-08 00:00: 00 Yes .5mg Inhale 2.5 mL every 6 (six) hours as needed for Wheezing or Shortness of Breath. [facility] budesonide- formoterol (SYMBICORT) 160-4.5 mcg/actuati on inhaler 2014-08 00:00: 00 Yes 2{puff} Inhale 2 Puffs 2 (two) times daily. [facility] ciprofloxac in HCl (CIPRO) 500 mg tablet 2014-08 00:00: 00 Yes 500mg Take 1 Tab by mouth every 12 (twelve) hours. [facility] ipratropium (ATROVENT) 0.02 % nebulizer solution 2014-08 00:00: 00 Yes .5mg Inhale 2.5 mL every 6 (six) hours as needed for Wheezing or Shortness of Breath. [facility] budesonide- formoterol (SYMBICORT) 160-4.5 mcg/actuati on inhaler 2014-08 00:00: 00 Yes 2{puff} Inhale 2 Puffs 2 (two) times daily. [facility] budesonide- formoterol (SYMBICORT) 160-4.5 mcg/actuati on inhaler 2014-08 00:00: 00 Yes 2{puff} Inhale 2 Puffs 2 (two) times daily. [facility] budesonide- formoterol (SYMBICORT) 160-4.5 mcg/actuati on inhaler 2014-08 00:00: 00 Yes 2{puff} Inhale 2 Puffs 2 (two) times daily. [facility] budesonide- formoterol (SYMBICORT) 160-4.5 mcg/actuati on inhaler 2014-08 00:00: 00 Yes 2{puff} Inhale 2 Puffs 2 (two) times daily. [facility] budesonide- formoterol (SYMBICORT) 160-4.5 mcg/actuati on inhaler 2014-08 00:00: 00 Yes 2{puff} Inhale 2 Puffs 2 (two) times daily. [facility] budesonide- formoterol (SYMBICORT) 160-4.5 mcg/actuati on inhaler 2014-08 00:00: 00 Yes 2{puff} Inhale 2 Puffs 2 (two) times daily. [facility] budesonide- formoterol (SYMBICORT) 160-4.5 mcg/actuati on inhaler 2014-08 00:00: 00 Yes 2{puff} Inhale 2 Puffs 2 (two) times daily. [facility] albuterol (ACCUNEB) 0.63 mg/3 mL nebulizer solution 2014-08 00:00: 00 Yes .63mg Use 3 mL as directed every 6 (six) hours as needed for Wheezing. [facility] ciprofloxac in HCl (CIPRO) 500 mg tablet 2014-08 00:00: 00 Yes 500mg Take 1 Tab by mouth every 12 (twelve) hours. [facility] predniSONE (DELTASONE) 10 mg tablet 2014-08 00:00: 00 Yes 10mg Take 1 Tab by mouth daily. [facility] ipratropium (ATROVENT) 0.02 % nebulizer solution 2014-08 00:00: 00 Yes .5mg Inhale 2.5 mL every 6 (six) hours as needed for Wheezing or Shortness of Breath. [facility] budesonide- formoterol (SYMBICORT) 160-4.5 mcg/actuati on inhaler 2014-08 00:00: 00 Yes 2{puff} Inhale 2 Puffs 2 (two) times daily. [facility] ciprofloxac in HCl (CIPRO) 500 mg tablet 2014-08 00:00: 00 12-28 00:00 :00 No 500mg Take 1 Tab by mouth every 12 (twelve) hours. [facility] ipratropium (ATROVENT) 0.02 % nebulizer solution 2014-08 00:00: 00 12-28 00:00 :00 No .5mg Inhale 2.5 mL every 6 (six) hours as needed for Wheezing or Shortness of Breath. [facility] albuterol (ACCUNEB) 0.63 mg/3 mL nebulizer solution 2014-08 00:00: 00 09-15 00:00 :00 No .63mg Use 3 mL as directed every 6 (six) hours as needed for Wheezing. [facility] Immunizations Ordered Immunization Name Filled Immunization Name Date Status Comments Source Pneumococcal Polysaccharide, PPSV23 (PNEUMOVAX) 2015-04-26 00:00:00 Completed [facility] Pneumococcal Polysaccharide, PPSV23 (PNEUMOVAX) 2015-04-26 00:00:00 Completed [facility] Pneumococcal Polysaccharide, PPSV23 (PNEUMOVAX) 2015-04-26 00:00:00 Completed [facility] Pneumococcal Polysaccharide, PPSV23 (PNEUMOVAX) 2015-04-26 00:00:00 Completed [facility] Pneumococcal Polysaccharide, PPSV23 (PNEUMOVAX) 2015-04-26 00:00:00 Completed [facility] Pneumococcal Polysaccharide, PPSV23 (PNEUMOVAX) 2015-04-26 00:00:00 Completed [facility] Pneumococcal Polysaccharide, PPSV23 (PNEUMOVAX) 2015-04-26 00:00:00 Completed [facility] Pneumococcal Polysaccharide, PPSV23 (PNEUMOVAX) 2015-04-26 00:00:00 Completed [facility] Pneumococcal Polysaccharide, PPSV23 (PNEUMOVAX) 2015-04-26 00:00:00 Completed [facility] Pneumococcal Polysaccharide, PPSV23 (PNEUMOVAX) 2015-04-26 00:00:00 Completed [facility] Pneumococcal Polysaccharide, PPSV23 (PNEUMOVAX) 2015-04-26 00:00:00 Completed [facility] Pneumococcal Polysaccharide, PPSV23 (PNEUMOVAX) 2015-04-26 00:00:00 Completed [facility] Pneumococcal Polysaccharide, PPSV23 (PNEUMOVAX) Unknown Completed [facility] Vital Signs Vital Name Observation Time Observation Value Comments S ource Systolic blood pressure 2023-05-02 09:00:00 125 mm[Hg] [facility] Diastolic blood pressure 2023-05-02 09:00:00 91 mm[Hg] [facility] Heart rate 2023-05-02 09:00:00 90 /min [facility] Respiratory rate 2023-05-02 09:00:00 20 /min [facility] Oxygen saturation in Arterial blood by Pulse oximetry 2023-05-02 09:00:00 96 /min [facility] Body temperature 2023-05-02 08:20:00 37.22 Paula [facility] Body height 2023-05-02 08:20:00 185.4 cm [facility] Body weight 2023-05-02 08:20:00 89.948 kg [facility] BMI 2023-05-02 08:20:00 26.16 kg/m2 [facility] Respiratory rate 2022-04-16 20:28:00 16 /min [facility] Oxygen saturation in Arterial blood by Pulse oximetry 2022-04-16 20:28:00 98 /min [facility] Systolic blood pressure 2022-04-16 19:28:00 104 mm[Hg] [facility] Diastolic blood pressure 2022-04-16 19:28:00 74 mm[Hg] [facility] Heart rate 2022-04-16 19:28:00 101 /min [facility] Body temperature 2022-04-16 19:28:00 36.33 Paula [facility] Body height 2022-04-16 19:28:00 185.4 cm [facility] Body weight 2022-04-16 19:28:00 86.183 kg [facility] BMI 2022-04-16 19:28:00 25.07 kg/m2 [facility] Respiratory rate 2021-09-05 22:31:00 16 /min [facility] Oxygen saturation in Arterial blood by Pulse oximetry 2021-09-05 22:31:00 97 /min [facility] Systolic blood pressure 2021-09-05 21:25:00 110 mm[Hg] [facility] Diastolic blood pressure 2021-09-05 21:25:00 75 mm[Hg] [facility] Heart rate 2021-09-05 21:25:00 106 /min [facility] Body temperature 2021-09-05 21:25:00 36.89 Paula [facility] Body weight 2021-09-05 21:25:00 81.647 kg [facility] BMI 2021-09-05 21:25:00 23.75 kg/m2 [facility] Respiratory rate 2021-05-28 12:37:00 14 /min [facility] Oxygen saturation in Arterial blood by Pulse oximetry 2021-05-28 12:37:00 100 /min [facility] Systolic blood pressure 2021-05-28 12:00:00 125 mm[Hg] [facility] Diastolic blood pressure 2021-05-28 12:00:00 86 mm[Hg] [facility] Heart rate 2021-05-28 12:00:00 94 /min [facility] Body temperature 2021-05-28 11:30:00 36.72 Paula [facility] Body height 2021-05-28 11:30:00 185.4 cm [facility] Body weight 2021-05-28 11:30:00 81.647 kg [facility] BMI 2021-05-28 11:30:00 23.75 kg/m2 [facility] Systolic blood pressure 2020-12-28 14:00:00 143 mm[Hg] [facility] Diastolic blood pressure 2020-12-28 14:00:00 91 mm[Hg] [facility] Heart rate 2020-12-28 14:00:00 93 /min [facility] Respiratory rate 2020-12-28 14:00:00 20 /min [facility] Oxygen saturation in Arterial blood by Pulse oximetry 2020-12-28 14:00:00 95 /min [facility] Body temperature 2020-12-28 12:02:00 36.67 Paula [facility] Body weight 2020-12-28 12:02:00 81.647 kg [facility] BMI 2020-12-28 12:02:00 23.75 kg/m2 [facility] Systolic blood pressure 2020-11-09 21:00:00 147 mm[Hg] [facility] Diastolic blood pressure 2020-11-09 21:00:00 101 mm[Hg] [facility] Heart rate 2020-11-09 21:00:00 79 /min [facility] Respiratory rate 2020-11-09 21:00:00 18 /min [facility] Oxygen saturation in Arterial blood by Pulse oximetry 2020-11-09 21:00:00 97 /min [facility] Body temperature 2020-11-09 17:39:00 35.67 Paula [facility] Body weight 2020-11-09 17:39:00 81.647 kg [facility] BMI 2020-11-09 17:39:00 23.75 kg/m2 [facility] Systolic blood pressure 2019-10-03 20:00:00 136 mm[Hg] [facility] Diastolic blood pressure 2019-10-03 20:00:00 92 mm[Hg] [facility] Heart rate 2019-10-03 20:00:00 97 /min [facility] Respiratory rate 2019-10-03 20:00:00 19 /min [facility] Oxygen saturation in Arterial blood by Pulse oximetry 2019-10-03 20:00:00 98 /min [facility] Body temperature 2019-10-03 18:28:00 36.67 Paula [facility] Body weight 2019-10-03 18:28:00 81.647 kg [facility] BMI 2019-10-03 18:28:00 23.75 kg/m2 [facility] Systolic blood pressure 2019-09-15 20:45:00 132 mm[Hg] [facility] Diastolic blood pressure 2019-09-15 20:45:00 92 mm[Hg] [facility] Heart rate 2019-09-15 20:45:00 86 /min [facility] Respiratory rate 2019-09-15 20:45:00 18 /min [facility] Oxygen saturation in Arterial blood by Pulse oximetry 2019-09-15 20:45:00 99 /min [facility] Body temperature 2019-09-15 19:21:00 36.72 Paula [facility] Body height 2019-09-15 19:21:00 185.4 cm [facility] Body weight 2019-09-15 19:21:00 79.379 kg [facility] BMI 2019-09-15 19:21:00 23.09 kg/m2 [facility] Respiratory rate 2019-04-15 05:40:00 20 /min [facility] Oxygen saturation in Arterial blood by Pulse oximetry 2019-04-15 05:32:00 100 /min [facility] Systolic blood pressure 2019-04-15 04:54:00 119 mm[Hg] [facility] Diastolic blood pressure 2019-04-15 04:54:00 74 mm[Hg] [facility] Heart rate 2019-04-15 04:54:00 99 /min [facility] Body temperature 2019-04-15 04:54:00 36.89 Paula [facility] Body weight 2019-04-15 04:54:00 81.647 kg [facility] BMI 2019-04-15 04:54:00 23.75 kg/m2 [facility] Procedures Procedure Date / Time Performed Performing Clinicia n Source CONSENT/REFUSAL FOR DIAGNOSIS AND TREATMENT 2023-05-02 08:10:22 Doctor Unassigned, [place] [facility] NOTICE OF PRIVACY PRACTICES 2023-05-02 08:09:47 Doctor Unassigned, [place] [facility] XR CHEST 1 VW 2022-04-16 21:46:00 Gelacio Nicole [facility] RAPID STREP SCREEN FOR GROUP A 2022-04-16 19:37:00 Gelacio Nicole [facility] COVID-19 (ID NOW RAPID TESTING) 2022-04-16 19:37:00 Gelacio Nicole [facility] CONSENT/REFUSAL FOR DIAGNOSIS AND TREATMENT 2022-04-16 19:24:25 Doctor Unassigned, [place] [facility] CONSENT/REFUSAL FOR DIAGNOSIS AND TREATMENT 2021-11-02 04:56:05 Doctor Unassigned, [place] [facility] CONSENT/REFUSAL FOR DIAGNOSIS AND TREATMENT 2021-09-05 21:18:00 Doctor Unassigned, [place] [facility] CONSENT/REFUSAL FOR DIAGNOSIS AND TREATMENT 2021-05-28 11:19:45 Doctor Unassigned, [place] [facility] NOTICE OF PRIVACY PRACTICES 2020-12-28 12:10:31 Doctor Unassigned, [place] [facility] CONSENT/REFUSAL FOR DIAGNOSIS AND TREATMENT 2020-12-28 11:58:34 Doctor Unassigned, [place] [facility] URINALYSIS 2020-11-09 20:35:00 [facility]AST 2020-11-09 18:20:00 Madonna Browne [facility] BASIC METABOLIC PANEL (NA, K, CL, CO2, GLUCOSE, BUN, CREATININE, CA) 2020-11-09 17:41:00 Madonna Browne [facility] CBC WITH DIFF 2020-11-09 17:41:00 Madonna Browne U [facility] NOTICE OF PRIVACY PRACTICES 2019-10-03 18:17:31 Doctor Unassigned, [place] [facility] CONSENT/REFUSAL FOR DIAGNOSIS AND TREATMENT 2019-10-03 18:17:21 Doctor Unassigned, [place] [facility] NOTICE OF PRIVACY PRACTICES 2019-09-15 19:15:10 Doctor Unassigned, [place] [facility] CONSENT/REFUSAL FOR DIAGNOSIS AND TREATMENT 2019-09-15 19:14:58 Doctor Unassigned, [place] [facility] NOTICE OF PRIVACY PRACTICES 2019-04-15 04:41:00 Doctor Unassigned, [place] [facility] CONSENT/REFUSAL FOR DIAGNOSIS AND TREATMENT 2019-04-15 04:40:28 Doctor Unassigned, [place] [facility] Encounters Start Date/Time End Date/Time Encounter Type Admission Type Attending [facility] Facility Care Department Encounter ID Source 2023-05-02 03:22:00 2023-05-02 04:36:00 Emergency Raheem BEARDENERLEYDI [facility] ERT [id number] [facility] 2023-05-02 03:22:00 2023-05-02 04:36:00 Leydi Moore [facility] 1..840.114 350.1.13.10 4.2.7.2.686 [id number] [facility] 2022-04-16 14:39:00 2022-04-16 16:57:00 Emergency GELACIO MAE TIMOTHY [facility] ERT [id number] [facility] 2022-04-16 14:39:00 2022-04-16 16:57:00 Gelacio Loya [facility] 1..840.114 350.1.13.10 4.2.7.2.686 [id number] [facility] 2021-11-01 23:57:00 2021-11-01 23:57:00 Emergency X AVELINO ENCINAS [facility] ERT [id number] [facility] 2021-11-01 00:00:00 2021-11-01 00:00:00 Orders Only Doctor Unassigned, [place] [facility] 1.2.840.114 350.1.13.10 4.2.7.2.686 [id number] [facility] 2021-09-05 15:32:00 2021-09-05 16:47:00 Emergency X MADONNA BROWNE [facility] ERT [id number] [facility] 2021-09-05 15:32:00 2021-09-05 16:47:00 Emergency Madonna Browne [facility] 1.2.840.114 350.1.13.10 4.2.7.2.686 [id number] [facility] 2021-05-28 06:27:00 2021-05-28 08:16:00 Emergency AleksandraJúnior reyes [facility] 1.2.840.114 350.1.13.10 4.2.7.2.686 [id number] [facility] 2021-05-28 06:19:00 2021-05-28 06:19:[address] [facility] ERT [id number] [facility] 2020-12-28 07:01:00 2020-12-28 09:25:00 Emergency Madonna Browne [facility] 1.2.840.114 350.1.13.10 4.2.7.2.686 [id number] [facility] 2020-12-28 07:01:00 2020-12-28 07:01:00 Emergency X MADONNA BROWNE [facility] ERT [id number] [facility] 2020-11-09 12:36:00 2020-11-09 16:27:00 Emergency Madonna Browne [facility] 1.2.840.114 350.1.13.10 4.2.7.2.686 [id number] [facility] 2020-11-09 12:36:00 2020-11-09 12:36:00 Emergency X MADONNA BROWNE [facility] ERT [id number] [facility] 2019-10-03 12:24:23 2019-10-03 14:06:00 Emergency Jossue Banks [facility] 1.2.840.114 350.1.13.10 4.2.7.2.686 [id number] [facility] 2019-10-03 12:17:00 2019-10-03 12:17:[address] [facility] ERT [id number] [facility] 2019-10-03 00:00:00 2019-10-03 00:00:00 Orders Only Doctor Unassigned, [place] [facility] 1.2840.114 350.1.13.10 4.2.7.2.686 [id number] [facility] 2019-09-15 13:16:23 2019-09-15 15:26:00 Emergency Deonte Avalos [facility] 1.2.840.114 350.1.13.10 4.2.7.2.686 [id number] [facility] 2019-09-15 00:00:00 2019-09-15 00:00:00 Orders Only Doctor Unassigned, [place] [facility] 1.2.840.114 350.1.13.10 4.2.7.2.686 [id number] [facility] 2019-04-14 23:56:20 2019-04-15 01:26:00 Emergency Júnior Crowe [facility] 1.2.840.114 350.1.13.10 4.2.7.2.686 [id number] [facility] 2019-04-14 00:00:00 2019-04-14 00:00:00 Orders Only Doctor Unassigned, [place] [facility] 1.2.840.114 350.1.13.10 4.2.7.2.686 [id number] [facility] Results Test Description Test Time Test Comments Results Result Co mments Source [facility] [id number] 19:45:431. ?Right UVJ stone measuring 0.3 mm with upstream mild dilatation of theright ureter and renal pelvis.2. ?Nonobstructing left-sided kidney stone measuring up to 0.6 cm. Preliminary Report Dictated by Resident: Kwabena Hills MD., have reviewed this study and agree with the aboverep ort.EXAM: CT ABDOMEN PELVIS WO CONTRAST HISTORY: 39 years-old Male; Indication for study: Flank pain, kidney stonesuspected COMPARISON: None TECHNIQUE AND FINDINGS: Contiguous axial imaging from the level of the lungbases through the pubic symphysis was performed. Coronal and sagittalreconstructions were obtained. ? FINDINGS: Limited evaluation of solid organ without administration intravenouscontrast. LOWER THORAX: The lungs bases are clear. A subcentimeter calcifiedgranuloma in the right lower lobe is noted. LIVER: No focal hepatic lesions. ?Normal contour. GALLBLADDER AND BILIARY TREE: No intra or extrahepatic biliary dilatation.No gallbladder wall thickening. No radiopaque gallstone is i dentified. SPLEEN: No splenomegaly. Multiple punctate calcification consistent withgranulomatous disease. PANCREAS: No ductal dilation or masses. ADRENAL GLANDS: No adrenal nodules. KIDNEYS: A right-sided distal ureter/UVJ junction stone measuring 0.3 mmwith mild upstream ureteral dilatation and periureteral fat stranding.Nonobstructing stone on the left side measuring 0.6 cm and 0.2 cm in thesuperior pole. GI TRACT: No dilation or abnormal wall thickening. The appendix is notclearly visualized, however no inflammatory stranding is noted about thececum to suggest appendicitis. PERITONEUM AND RETROPERITONEUM: No free air or fluid. LYMPH NODES: No enlarged lymph nodes by CT criteria. PELVIS/BL ADDER: Unremarkable. VESSELS: Unremarkable. BONES AND SOFT TISSUES: No suspicious lytic or sclerotic bony lesions. [facility], Radiant Results Inft User - 11/09/2020 2:46 PM CDTEXAM: CT ABDOMEN PELVIS WO CONTRASTHISTORY: 39 years-old Male; Indication for study: Flank pain, kidney stonesuspected COMPARISON: NoneTECHNIQUE AND FINDINGS: Contiguous axial imaging from the level of the lungbases through the pubic symphysis was performed. Coronal and sagittalreconstructions were obtained. FINDINGS:Limited evaluation of solid organ without administration intravenouscontrast.LOWER THORAX: The lungs bases are clear. A subcentimeter calcifiedgranuloma in the right lower lobe is noted.LIVER: No focal hepaticlesions. Normal contour.GALLBLADDER AND BILIARY TREE: No intra or extrahepatic biliary dilatation.No gallbladder wall thickening. No radiopaque gallstone is identified.SPLEEN: No splenomegaly. Multiple punctate calcification consistent withgranulomatous disease.PANCREAS: No ductal dilation or masses.ADRENAL GLANDS: No adrenal nodules.KIDNEYS: A right-sided distal ureter/UVJ junction stone measuring 0.3 mmwith mild upstream ureteral dilatation and periureteral fat stranding.Nonobstructing stone on the left side measuring 0.6 cm and 0.2 cm in thesuperior pole.GI TRACT: No dilation or abnormal wall thickening. The appendix is notclearly visualized, however no inflammatory stranding is noted about thececum to suggest appendicitis.PERITONEUM AND RETROPERITONEUM: No free air or fluid.LYMPH NODES: No enlarged lymph nodes by CT criteria.PELVIS/BLADDER: Unremarkable.VESSELS: Unremarkable.BONES AND SOFT TISSUES: No suspicious lytic or sclerotic bony lesions.IMPRESSION1. Right UVJ stone measuring 0.3 mm with upstream mild dilatation of theright ureter and renal pelvis.2. Nonobstructing left-sided kidney stone measuring up to 0.6 cm.Preliminary Report Dictated by Resident: Kwabena Keen MD., have reviewed this study and agree with the abovereport.[facility] Metabolic Panel (NA, K, CL, CO2, GLUCOSE, BUN, CREATININE, CA)2020-11-09 18:13:50* Test Item Value Reference Range Interpretation Comme nts NA (test code = 1761076736) 143 mmol/L 135-145 K (test code = 5957627543) 3.7 mmol/L 3.5-5.0 CL (test code = 4041700920) 108 mmol/L 98-108 CO2 TOTAL (test code = 9032970930) 27 mmol/L 23-31 AGAP (test code = 6782637138) 2-16 BUN (test code = 1417952155) 18 mg/dL 7-23 GLUCOSE (test code = 4232503348) 105 mg/dL 70-110 CREATININE (test code = 3706620818) 1.44 mg/dL 0.60-1.25 H CALCIUM (test code = 7680977083) 9.6 mg/dL 8.6-10.6 eGFR (test code = 8811774256) mL/min/1.73m2 BON (test code = BON) Association of Glomerular Filtration Rate (GFR) and Staging of Kidney Disease* + --+ --+ ------+| GFR (mL/min/1.73 m2) ?| With Kidney Damage ?| ?Without Kidney Damage+ --------+ --------+ +| ?>90 ?| ?Stage one ?| ? Normal ?+ ---+ ---+ -------+| ?60-89 ?| ?Stage two ?| ? Decreased GFR ? + --+ --+ ------+| ?30-59 ?| ?Stage three ?| ? Stage three ? + --+ --+ ------+| ?15-29 ?| ?Stage four ? | ? Stage four ?+ ---+ ---+ -------+| ?<15 (or dialysis) ? ?| ?Stage five ? | ? Stage five ?+ ---+ ---+ -------+ *Each stage assumes the associated GFR level has been in effect for at least three months. ?Stages 1 to 5, with or without kidney disease, indicate chronic kidney disease. Notes: Determination of stages one and two (with eGFR >59mL/min/1.73 m2) requires estimation of kidney damage for at least three months as defined by structural or functional abnormalities of the kidney, manifested by either:Pathological abnormalities or Markers of kidney damage (including abnormalities in the composition of the blood or urine or abnormalities in imaging tests). Lab Interpretation (test code = 71197-1) [facility] with [id number] 18:00:29* Test Item Value Reference Range Interpretation Comme nts WBC (test code = 6690-2) See_Comment H [Automated messa ge] The system which generated this result transmitted reference range: 4.20 - 10.70 10*3/?L. The reference range was not used to interpret this result as normal/abnormal. RBC (test code = 789-8) See_Comment [Automated messa ge] The system which generated this result transmitted reference range: 4.26 - 5.52 10*6/?L. The reference range was not used to interpret this result as normal/abnormal. HGB (test code = 718-7) 14.5 g/dL 12.2-16.4 HCT (test code = 4544-3) 43.5 % 38.4-49.3 MCV (test code = 787-2) 87.2 fL 81.7-95.6 MCH (test code = 785-6) 29.1 pg 26.1-32.7 MCHC (test code = 786-4) 33.3 g/dL 31.2-35.0 RDW-SD (test code = 51865-8) 39.8 fL 38.5-51.6 RDW-CV (test code = 788-0) 12.5 % 12.1-15.4 PLT (test code = 777-3) See_Comment [Automated messa ge] The system which generated this result transmitted reference range: 150 - 328 10*3/?L. The reference range was not used to interpret this result as normal/abnormal. MPV (test code = 62086-7) 10.3 fL 9.8-13.0 NRBC/100 WBC (test code = 0317319961) See_Comment [Automated [employer] ssage] The system which generated this result transmitted reference range: 0.0 - 10.0 /100 WBCs. The reference range was not used to interpret this result as normal/abnormal. NRBC x10^3 (test code = 6626251409) <0.01 See_Comment [Automated messa ge] The system which generated this result transmitted reference range: 10*3/?L. The reference range was not used to interpret this result as normal/abnormal. GRAN MAT (NEUT) % (test code = 770-8) 66.3 % IMM GRAN % (test code = 9343672448) 0.30 % LYMPH % (test code = 736-9) 16.9 % MONO % (test code = 5905-5) 11.3 % EOS % (test code = 713-8) 4.3 % BASO % (test code = 706-2) 0.9 % GRAN MAT x10^3(ANC) (test code = 3641263793) 7.63 10*3/uL 1.99-6.95 H IMM GRAN x10^3 (test code = 3392168352) 0.03 10*3/uL 0.00-0.06 LYMPH x10^3 (test code = 731-0) 1.94 10*3/uL 1.09-3.23 MONO x10^3 (test code = 742-7) 1.30 10*3/uL 0.36-1.02 H EOS x10^3 (test code = 711-2) 0.49 10*3/uL 0.06-0.53 BASO x10^3 (test code = 704-7) 0.10 10*3/uL 0.01-0.09 H Lab Interpretation (test code = 31845-3) Abnormal [facility]"
[2023-10-16 20:56] LABS: Absolute Basophils 0.1 K/uL (0-0.5); Absolute Eosinophils 0.7 K/uL (0-0.5); Absolute Lymphocytes (CBC) 2.3 K/uL (0.7-4.9); Eosinophils % 6.9 % (0-4.4); Hematocrit 42.5 % (39.6-49.0); Lymphocytes % 23.5 % (15.3-44.8); MCV 88.7 fL (80-100); MPV 8.9 fL (7.6-11.3); Platelets 268 thou/uL (152-406); RBC Red Blood Cell Count 4.79 M/uL (4.33-5.43)
[2023-10-16 21:04] LABS: Anion Gap 9.2 mEq/L (5.0-15.0); Magnesium 2.1 mg/dL (1.6-2.4); Potassium 4.2 mEq/L (3.5-5.1); Troponin High Sensitivity 11.1 pg/mL (<58.9)
--- NOTE | 2023-10-16 22:06 | RAD REPORT ---
EXAM DESCRIPTION: Miles Single View10/16/2023 9:07 pm CLINICAL HISTORY: Chest pain COMPARISON: September 18, 2023 and 2014 FINDINGS: 8 millimeter nodule right lung base is unchanged from September 18, 2023. It has developed since 2014. It is equivocally calcified The remainder lungs appear clear. Heart is normal size IMPRESSION: 8 millimeter right lung nodule. It is recommended that the patient have a followup chest x-ray in 3 months to assess stability. Alter natively, an unenhanced CT could be obtained to determine if it is a calcified granuloma
--- NOTE | 2023-10-16 22:20 | EDPHYS ---
Physician Documentation [facility] Name: Kendrick Westfall Age: 42 yrs Sex: Male : 1980 Arrival Date: 10/16/2023 Time: 19:52 Bed 7 Private MD: ED Physician Baron Earl HPI: 10/15 20:06 This 42 yrs old Male presents to ER via Unassigned with complaints of Shortness Of ms3 Breath. 20:06 42-year-old male with past medical history of asthma presents to the emergency ms3 department for shortness of breath that has been ongoing for 2 days. Patient rates his discomfort a 9/10. Patient states he has been intubated and hospitalized for his asthma in the past. Patient denies any alleviating or inciting factors. Patient states he is currently out of medications and homeless. Historical: - Allergies: 21:23 No Known Allergies; as6 - PMHx: 21:23 Asthma; as6 - PSHx: 21:23 None; as6 - Immunization history:: Client reports having NOT received the Covid vaccine. Flu vaccine is not up to date. - Social history:: Smoking status: Patient reports the use of cigarette tobacco products, smokes one-half pack cigarettes per day, Patient/guardian denies using alcohol, street drugs. ROS: 20:06 Constitutional: Negative for fever, and chills. Cardiovascular: Negative for chest ms3 pain, and palpitations. 20:06 Abdomen/GI: Negative for abdominal pain, nausea, vomiting, diarrhea, and constipation, MS/Extremity: Negative for injury and deformity, Skin: Negative for injury, rash, and discoloration, 20:06 Respiratory: Positive for shortness of breath, Exam: 20:06 Constitutional: This is a well developed, well nourished patient who is awake, alert, ms3 and in no acute distress. Head/Face: Normocephalic, atraumatic. Neck: Trachea midline, no cervical lymphadenopathy. Supple, full range of motion without nuchal rigidity, or vertebral point tenderness. No Meningismus. Chest/axilla: Normal chest wall appearance and motion. Nontender with no deformity. Cardiovascular: Regular rate and rhythm with a normal S1 and S2. No gallops, murmurs, or rubs. Normal PMI, no JVD. No pulse deficits. Abdomen/GI: Soft, non-tender, with normal bowel sounds. No distension or tympany. No guarding or rebound. No evidence of tenderness throughout. Skin: Warm, dry with normal turgor. Normal color with no rashes, no lesions, and no evidence of cellulitis. 20:06 Respiratory: moderate respiratory distress is noted, Respirations: labored breathing, that is moderate, Breath sounds: wheezing: expiratory that is severe, is heard diffusely, 22:04 ECG was reviewed by the Attending Physician. ms3 Vital Signs: 19:57 BP 147 / 99; Pulse 108; Resp 20; Temp 96.9; Pulse Ox 99% on R/A; Weight 92.99 kg (R); km8 Height 6 ft. 1 in. (R); Pain 0/10; 20:40 BP 109 / 86; Pulse 94; Resp 19 S; Pulse Ox 98% on R/A; as6 21:21 BP 120 / 87; Pulse 92; Resp 18 S; Pulse Ox 100% on R/A; as6 22:14 BP 132 / 87; Pulse 93; Resp 17 S; Pulse Ox 98% on R/A; as6 19:57 Body Mass Index 27.05 (92.99 kg, 185.42 cm) km8 19:57 Pain Scale: Adult km8 MDM: 20:06 Patient medically screened. ms3 20:06 Differential diagnosis: asthma, CHF exacerbation, Myocardial Infarction. ms3 21:31 Independent interpretation of the following test(s) in the Emergency Department X-Ray: ms3 My interpretation is Chest x-ray image reviewed by me does not reveal pneumonia, pneumothorax.. 22:19 Data reviewed: vital signs, nurses notes, lab test result(s), EKG, radiologic studies, ms3 and as a result, I will discharge patient. I considered the following discharge prescriptions or medication management in the emergency department Medications were administered in the Emergency Department. See MAR. Counseling: I had a detailed discussion with the patient and/or guardian regarding the historical points, exam findings, and any diagnostic results supporting the discharge/admit diagnosis, lab results, radiology results. Special discussion: I discussed with the patient/guardian in detail that at this point there is no indication for admission to the hospital. It is understood, however, that if the symptoms persist or worsen the patient needs to return immediately for re-evaluation. ED course: On reevaluation patient's wheezing resolved. Patient is alert and oriented x 4, no apparent distress, nontoxic-appearing, ambulatory emergency department, speaking full sentences. Patient left emergency department prior to discharge instructions or discharge packet. Patient packet and discharge instructions printed if patient wishes to return for prescriptions and discharged packet. 10/15 20:02 Order name: Basic Metabolic Panel; Complete Time: 21:31 ms3 10/15 20:02 Order name: CBC with Diff; Complete Time: 21:31 ms3 10/15 20:02 Order name: Magnesium; Complete Time: 21:31 ms3 10/15 20:02 Order name: Troponin HS; Complete Time: 21:31 ms3 10/15 20:02 Order name: XRAY Chest (1 view); Complete Time: 22:11 ms3 10/15 20:02 Order name: EKG; Complete Time: 20:04 ms3 10/15 20:02 Order name: Cardiac monitoring; Complete Time: 20:39 ms3 10/15 20:02 Order name: EKG - Nurse/Tech; Complete Time: 20:39 ms3 10/15 20:02 Order name: IV Saline Lock; Complete Time: 20:27 ms3 10/15 20:02 Order name: Labs collected and sent; Complete Time: 20:27 ms3 10/15 20:02 Order name: O2 Per Protocol; Complete Time: 20:21 ms3 10/15 20:02 Order name: O2 Sat Monitoring; Complete Time: 20:21 ms3 EC:04 Rate is 87 beats/min. Rhythm is regular. QRS [place] is Normal. [place] interval is normal. QRS ms3 interval is normal. QT interval is normal. Clinical impression: Normal ECG. Interpreted by me. Reviewed by me. Administered Medications: 20:25 Drug: DuoNeb Nebulize (2.5 mg - 0.5 mg) 3 ml Nebulizer once Route: Nebulizer; vc1 22:15 Follow up: Response: No adverse reaction as6 20:25 Drug: MethylPrednisoLONE IVP 125 mg IVP once Route: IVP; Site: right antecubital; vc1 22:15 Follow up: Response: No adverse reaction as6 Disposition Summary: 10/16/23 22:19 Discharge Ordered Notes: Location: Home ms3 Condition: Stable ms3 Diagnosis - Unspecified asthma with (acute) exacerbation ms3 Followup: ms3 - With: Tre Becerra MD - When: 2 - 3 days - Reason: Recheck today's complaints Discharge Instructions: - Discharge Summary Sheet ms3 - Asthma, Adult ms3 Forms: - Medication Reconciliation Form ms3 - Thank You Letter ms3 - Antibiotic Education ms3 - Prescription Opioid Use ms3 - Patient Portal Instructions ms3 - Leadership Thank You Letter ms3 Prescriptions: - albuterol sulfate 90 mcg/actuation Inhalation HFA Aerosol Inhaler - inhale 2 puff INHALATION route 6 times per day as needed for shortness of ms3 breath or wheezing; 1 unit; Refills: 0, Product Selection Permitted - Prednisone 20 mg Oral Tablet - take 3 tablets ORAL route once daily for 5 days; 15 tablet; Refills: 0, Product ms3 Selection Permitted Signatures: Dispatcher [employer] EDMS Baron Earl, DO ms3 Yash Lincoln RN RN as6 Lynn Blackburn RN RN vc1 Ana Maria Rodriguez RN RN km8 Corrections: (The following items were deleted from the chart) 10/16 02:45 10/15 22:19 ED course: On reevaluation patient's wheezing resolved. Patient is alert ms3 and oriented x 4, no apparent distress, nontoxic-appearing, ambulatory emergency department, speaking full sentences. ms3
--- NOTE | 2023-10-16 22:20 | ER ---
Nurse's Notes [facility] Name: Kendrick Westfall Age: 42 yrs Sex: Male : 1980 Arrival Date: 10/16/2023 Time: 19:52 Bed 7 Private MD: Diagnosis: Unspecified asthma with (acute) exacerbation Presentation: 10/15 19:57 Chief complaint: Patient states: SOB with wheezing and cough for 2 days; denies km8 fever/chills; hx of asthma. Coronavirus screen: Client denies travel out of the [place] in the last 14 days. Ebola Screen: No symptoms or risks identified at this time. Initial Sepsis Screen: Does the patient meet any 2 criteria? HR > 90 bpm. No. Patient's initial sepsis screen is negative. Does the patient have a suspected source of infection? No. Patient's initial sepsis screen is negative. Risk Assessment: Do you want to hurt yourself or someone else? Patient reports no desire to harm self or others. Onset of symptoms was October 14, 2023. 19:57 Method Of Arrival: Ambulatory km8 19:57 Acuity: LESLY 2 km8 Triage Assessment: 19:57 General: Appears distressed, Behavior is cooperative, appropriate for age. Pain: Denies km8 pain. EENT: No signs and/or symptoms were reported regarding the EENT system. Neuro: Level of Consciousness is awake, alert, obeys commands, Oriented to person, place, time, situation, Appropriate for age. Cardiovascular: Reports shortness of breath, Denies chest pain, Patient's skin is warm and dry. Respiratory: Reports shortness of breath at rest cough that is labored breathing Airway is patent Respiratory effort is even, labored, Respiratory pattern is regular, tachypnea Breath sounds with wheezes bilaterally. Onset: The symptoms/episode began/occurred gradually, the patient has severe shortness of breath. GI: No signs and/or symptoms were reported involving the gastrointestinal system. : No signs and/or symptoms were reported regarding the genitourinary system. Derm: Skin is intact, is healthy with good turgor, Skin is clammy, Skin is pink, warm \T\ dry. normal, Skin temperature is warm. Musculoskeletal: No signs and/or symptoms reported regarding the musculoskeletal system. Range of motion: intact in all extremities. Historical: - Allergies: 21:23 No Known Allergies; as6 - PMHx: 21:23 Asthma; as6 - PSHx: 21:23 None; as6 - Immunization history:: Client reports having NOT received the Covid vaccine. Flu vaccine is not up to date. - Social history:: Smoking status: Patient reports the use of cigarette tobacco products, smokes one-half pack cigarettes per day, Patient/guardian denies using alcohol, street drugs. Screenin:22 [facility] ED Fall Risk Assessment (Adult) History of falling in the last 3 months, as6 including since admission No falls in past 3 months (0 pts) Confusion or Disorientation No (0 pts) Intoxicated or Sedated No (0 pts) Impaired Gait No (0 pts) Mobility Assist Device Used No (0 pt) Altered Elimination No (0 pt) Score/Fall Risk Level 0 - 2 = Low Risk Oriented to surroundings, Maintained a safe environment, Educated pt \T\ family on fall prevention, incl call for assistance when getting out of bed, Assessed \T\ reinforced patient's understanding of fall precautions, Hourly rounding (assess needs \T\ fall precautionary measures) done. Abuse screen: Denies threats or abuse. Denies injuries from another. Nutritional screening: No deficits noted. Tuberculosis screening: No symptoms or risk factors identified. Assessment: 20:40 Reassessment: Patient appears in no apparent distress at this time. Patient and/or as6 family updated on plan of care and expected duration. Pain level reassessed. Patient is alert, oriented x 3, equal unlabored respirations, skin warm/dry/pink. Patient states feeling better. Patient states symptoms have improved. 21:21 Reassessment: Patient appears in no apparent distress at this time. as6 22:14 General: pt wanted to leave. ERP notified . as6 Vital Signs: 19:57 BP 147 / 99; Pulse 108; Resp 20; Temp 96.9; Pulse Ox 99% on R/A; Weight 92.99 kg (R); km8 Height 6 ft. 1 in. (R); Pain 0/10; 20:40 BP 109 / 86; Pulse 94; Resp 19 S; Pulse Ox 98% on R/A; as6 21:21 BP 120 / 87; Pulse 92; Resp 18 S; Pulse Ox 100% on R/A; as6 22:14 BP 132 / 87; Pulse 93; Resp 17 S; Pulse Ox 98% on R/A; as6 19:57 Body Mass Index 27.05 (92.99 kg, 185.42 cm) km8 19:57 Pain Scale: Adult 8 ED Course: 19:55 Patient arrived in ED. gm2 19:57 Arm band placed on right wrist. km8 19:59 Baron Earl DO is Attending Physician. ms3 20:07 Patient has correct armband on for positive identification. Bed in low position. Call km8 light in reach. Side rails up X 1. Pulse ox on. NIBP on. Lights dimmed. 20:09 Triage completed. km8 20:25 Inserted saline lock: 20 gauge in right antecubital area, using aseptic technique. vc1 Blood collected. 20:26 Yash Lincoln, RN is Primary Nurse. as6 21:09 XRAY Chest (1 view) In Process Unspecified. EDMS 21:22 Diet tray given. PO fluids given. as6 22:14 No provider procedures requiring assistance completed. IV discontinued, intact, as6 bleeding controlled, No redness/swelling at site. Pressure dressing applied. 22:15 Provided Education on: follow up as needed . as6 22:19 Tre Becerra MD is Referral Physician. ms3 Administered Medications: 20:25 Drug: DuoNeb Nebulize (2.5 mg - 0.5 mg) 3 ml Nebulizer once Route: Nebulizer; vc1 22:15 Follow up: Response: No adverse reaction as6 20:25 Drug: MethylPrednisoLONE IVP 125 mg IVP once Route: IVP; Site: right antecubital; vc1 22:15 Follow up: Response: No adverse reaction as6 Medication: 21:23 VIS not applicable for this client. as6 Outcome: 22:15 Condition: stable as6 22:19 Discharge ordered by . ms3 22:45 Discharged to home ambulatory, as6 22:45 Discharge instructions given to patient, Instructed on discharge instructions, follow up and referral plans. Demonstrated understanding of instructions, follow-up care, 22:45 Patient left the ED. as6 Signatures: Dispatcher [employer] EDMS Baron Earl DO DO ms3 Yash Lincoln RN RN as6 Lynn Blackburn RN RN vc1 Maris Amin gm2 Ana Maria Rodriguez, RN RN km8
[2023-10-16 23:05] VITALS: BP 132/87; TEMP 96.9; O2SAT 98
== END ==
LOC: ER 19:52
DX: J45.901 Unspecified asthma with (acute) exacerbation (principal); F17.210 Nicotine dependence, cigarettes, uncomplicated
CPT/HCPCS: 85025; 80048; 36415; 83735; 84484; 71045; J7613 ×2; J7644; J2930; 94640; 96374; 99285